=== PATIENT | male | born 2000 | race Two or more races ===

== ENCOUNTER → 2022-12-08 07:53 | Outpatient (BNVA) | payer OTHER, SELFPAY | PROVIDERS: PCP Internal Medicine; Visit Provider Nurse Practitioner Family | DX: R06.83 Snoring (principal); R41.3 Other amnesia; R53.83 Other fatigue; R68.89 Other general symptoms and signs | CPT/HCPCS: 99202 ==

== ENCOUNTER 2023-03-08 15:31 | Outpatient (REF) | payer OTHER, SELFPAY ==
[2023-03-08 18:29] LABS: Amphetamine Screen Urine Not Detected (Not Detect); Barbiturates, Urine Not Detected (Not Detect); Benzodiazepines Screen Urine Not Detected (Not Detect); Cannabinoid Screen Urine Not Detected (Not Detect); Cocaine Screen Urine Not Detected (Not Detect); Fentanyl, urine Not Detected (Not Detect); Opiate Screen Urine Not Detected (Not Detect); Phencyclidine Screen Urine Not Detected (Not Detect)
== END 2023-03-08 15:32 | disposition home or self-care (01) ==
LOC: HO.LAB 15:31
PROVIDERS: PCP Internal Medicine; Visit Provider Internal Medicine
DX: R53.83 Other fatigue (principal)
CPT/HCPCS: 80307

== ENCOUNTER 2023-12-05 15:53 | Outpatient (AMB) | payer OTHER, SELFPAY ==
[2023-12-05 16:00] VITALS: BP 102/68; BMI 20.8
--- NOTE | 2023-12-05 16:00 | MHC.PC.OV ---
Vital Signs 12/05/23 16:00 Height 5 ft 8 in Weight 137 lb BMI 20.8 BP 102/68 Blood Pressure Location Lt brachial Position Sitting Intake Visit Reasons: Physical exam Intake Note: Patient here for a physical exam Change Analyst Required: No Accompanied by: Self / Same As Patient Allergies No Known Allergies Allergy (Verified 12/05/23 16:12) Medication List - Last Reconciled 12/05/23 by Aurora Juan MD ciclopirox 1% 5 mL topical DAILY 30 days omeprazole 40 mg PO DAILY 90 days Tobacco use date assessed: 12/05/23 Dental Screening Dental Screen Date: 12/05/23 Did you have a dental visit in the last 12 months?: Yes Did you have a dental problem in the last 6 months where you did not have access to dental care?: No Was dental information given to patient?: Patient has dentist HPI HPI Comments History of Present Illness Details This is a 23-year-old male that comes accompanied by mother for his physical exam. No chest pain or shortness on breath. No change in bowel or bladder habits. PFSH Surgical History No pertinent past surgical history Family History Mother Arthritis Father Hypercholesterolemia Social History Housing: House Alcohol intake: current Alcohol intake frequency: a few times a month Alcohol type: other Patient Tobacco Use Status: Never used Tobacco e-Cigarette/Vaping Use: Never Used Second Hand Smoke Exposure: Yes service: No Current occupational status: unemployed Cognitive needs: No Hearing needs: No Vision needs: Yes Questionnaire PHQ-9 Over the last 2 weeks, how often have you been bothered by any of the following problems? 1. Little interest or pleasure in doing things: not at all 2. Feeling down, depressed, or hopeless: not at all 3. Trouble falling or staying asleep, or sleeping too much: not at all 4. Feeling tired or having little energy: not at all 5. Poor appetite or overeating: not at all 6. Feeling bad about yourself - or that you are a failure or have let yourself or your family down: not at all 7. Trouble concentrating on things, such as reading the newspaper or watching television: not at all 8. Moving or speaking so slowly that other people could have noticed. Or the opposite - being so fidgety or restless that you have been moving around a lot more than usual: not at all 9. Thoughts that you would be better off or of hurting yourself in some way: not at all Total score: 0 Depression Screening Interpretation: Negative Depression Screening Done: Yes 35574 - PHQ-9 Billing: Yes Source: Developed by Drs. Blake Joshi, Ludmila Biswas, Randall Saldivar and colleagues, with an educational megan from [employer]. Thrive Questionnaire Date Thrive assessed: 12/05/23 I am a: Patient What is your living situation today?: I have a steady place to live Within the past 12 months, did the food you bought not last and you didn't have the money to get more?: Never true Within the past 12 months, did you worry whether your food would run out before you got money to buy more?: Never true Do you have trouble paying for medicines?: No Do you have trouble getting transportation to medical appointments?: No Do you have trouble paying your heating and electricity bill?: No Do you have trouble taking care of your child, family member or friend?: No Do you have trouble with day-to-day activities such as bathing, preparing meals, shopping, managing finances, etc.?: No Are you currently unemployed and looking for a job?: No Are you interested in more education?: No Please select the resources that you would like help with: None Currently or been in a relationship where the following occur: no concerns reported THRIVE Score: 0 AUDIT C Alcohol Use Questionnaire (AUDIT-C) 1. How often do you have a drink containing alcohol?: Monthly or less 2. How many drinks containing alcohol do you have on a typical day when you are drinking?: 1 or 2 3. How often do you have six or more drinks on one occasion?: Never Total Score: 1 Score Reviewed/Action Taken: No CHRISTINA-7 AMB Questionnaire CHRISTINA-7 Date CHRISTINA - 7 assessed: 12/05/23 Feeling nervous, anxious, or on edge: 0 = Not at all Not being able to stop or control worryin = Not at all Worrying too much about different things: 0 = Not at all Trouble relaxin = Not at all Being so restless that it is hard to sit still: 0 = Not at all Becoming easily annoyed or irritable: 0 = Not at all Feeling afraid as if something awful might happen: 0 = Not at all Total CHRISTINA-7 score (0-4 normal; 5-9 mild; 10-14 moderate; 15-21 severe): 0 Source: Developed by Drs. Blake Joshi, Ludmila Biswas, Randall Saldivar and colleagues, with an educational megan from [employer]. CHRISTINA-7 Assessment Billing CHRISTINA-7 Assessment Tool: CHRISTINA-7 Assessment 06956 Review of Systems Const All systems reviewed & are unremarkable except as noted in HPI and below Card Denies chest pain at rest, Denies chest pain with activity, Denies edema, Denies irregular heart rhythm, Denies claudication, Denies dyspnea, Denies dyspnea on exertion, Denies orthopnea, Denies paroxysmal nocturnal dyspnea and Denies slow heart rate Resp Denies cough, Denies dyspnea and Denies dyspnea on exertion Physical exam (Primary Care) Vital Signs: Last Vital Signs BP 102/68 12/05/23 16:00 BMI result Body Mass Index 20.8 Tobacco/Smoking Status: Tobacco use Status Tobacco use date assessed 12/05/23 12/05/23 16:09 Patient Tobacco Use Status Never used Tobacco 12/05/23 16:09 e-Cigarette/Vaping Use Never Used 12/05/23 16:09 PHQ-9: PHQ-9 Score PHQ-9: Total score 0 12/05/23 16:09 Depression Screening Interpretation: Negative Thrive Assessment: Date of Thrive Assessment Date Thrive assessed 12/05/23 12/05/23 16:09 Currently or been in a relationship where the following occur: no concerns reported Const Orientation/consciousness: patient oriented x3 HENMT Head: Yes normal to inspection, Yes normocephalic and Yes atraumatic Ears: external ears normal Eyes General: appearance normal, both eyes and all related structures Eyelids: Yes eyelids normal Conjunctivae: conjunctivae normal Neck Neck: Yes normal visual inspection and Yes supple Resp Effort & Inspection: normal respiratory effort Auscultation: clear to auscultation bilaterally Cardio Jugular venous distension: no JVD Rate: regular rate Rhythm: regular rhythm Heart sounds: S1 normal heart sound present and S2 normal heart sound present GI Inspection: Yes normal to inspection Palpation (GI): Soft to palpation and nontender Auscultation: normal bowel sounds Skin General skin exam: no rashes or lesions noted Neuro General: patient oriented x3 and no focal motor deficits Extrem General: Yes full ROM Psych Appearance: grossly normal Assessment and Plan Assessment & Plan (1) Physical exam: Code(s): Z00.00 - Encounter for general adult medical examination without abnormal findings Plan: Repeat in a year. Orders: Orders Lipid Panel Today E78.5 - Hyperlipidemia, unspecified, Z00.00 - Encounter for general adult medical examination without abnormal findings Comprehensive [place]. Panel Fast Today Z00.00 - Encounter for general adult medical examination without abnormal findings Medications: New selenium sulfide 2.25% massage into affected area; leave on for 10 mins ; rinse off thoroughly 1 appl topical BEDTIME 30 days 180 mL 1RF Refilled omeprazole 40 mg PO DAILY 90 days 90 caps 1RF Coding Level of Care Code Est Pt Prev Care 18-39y(50517) Diagnoses Physical exam Z00.00 Additional Codes CHRISTINA-7 Assessment Billing - CHRISTINA-7 Assessment Tool: CHRISTINA-7 Assessment 97342 ([id number]) Time Spent (min) 30
== END 2023-12-05 16:22 | disposition home or self-care (01) ==
PROVIDERS: PCP Internal Medicine; Visit Provider Internal Medicine
DX: Z00.00 Encounter for general adult medical examination without abnormal findings (principal)
CPT/HCPCS: 99395

== ENCOUNTER 2024-01-30 12:31 | Outpatient (AMB) | payer OTHER, SELFPAY ==
--- NOTE | 2024-01-30 13:34 | MHC.OFFWIV ---
Intake Vital Signs 01/30/24 13:35 Height 5 ft 8 in Weight 142 lb BMI 21.6 BP 110/74 Blood Pressure Location Rt brachial Position Sitting Pulse 75 Pulse Source Pulse Oximeter Temp 98.4 F Temp Source Oral Pulse Oximetry (%) 97 Oxygen Delivery Method Room Air Intake Visit Reasons: Rt wrist pain bump and swelling Intake Note: pt here c/o RT wrist pain bump and swelling. Started 2 weeks ago, lifting something heavy Patient Tobacco Use Status: Never used Tobacco Allergies No Known Allergies Allergy (Verified 01/30/24 13:34) Do you need a note to return to daycare/school/sports/work: No HPI HPI Comments History of Present Illness Details Patient presents to the walk-in today for sick visit Complaining of pain and swelling to the right hand for last 2 weeks Started after he was lifting some weights at the gym He has not taken any medications for the pain PFSH Surgical History No pertinent past surgical history Family History Mother Arthritis Father Hypercholesterolemia Social History Housing: House Alcohol intake: current Alcohol intake frequency: a few times a month Alcohol type: other Patient Tobacco Use Status: Never used Tobacco e-Cigarette/Vaping Use: Never Used Second Hand Smoke Exposure: Yes service: No Current occupational status: unemployed Cognitive needs: No Hearing needs: No Vision needs: Yes Review of Systems Const All systems reviewed & are unremarkable except as noted in HPI and below Physical Exam Vital Signs: Last Vital Signs Temp 98.4 F 01/30/24 13:35 Pulse 75 01/30/24 13:35 BP 110/74 01/30/24 13:35 Pulse Ox 97 01/30/24 13:35 Oxygen Delivery Method Room Air 01/30/24 13:35 BMI result Body Mass Index 21.6 General: awake, alert, oriented. Answers questions appropriately. Fully engaged in examination. Skin: warm, dry, intact HEENT: Normocephalic. Hearing intact. Cardiac: External chest normal in appearance. Respiratory: No cough, audible wheezing or stridor. Abdomen: without gross distension. MS: Scant swelling and tenderness between 1st and 2nd metacarpals. Increased discomfort with flexion and extension of the 2nd digit. Neurological: Oriented to person, place, time and situation. Thought process intact. No gait abnormalities appreciated. Psychiatric: Appropriate mood and affect. Good judgment and insight. Results Reviewed Results Reviewed: Right hand x-ray ordered and independently reviewed: No fracture or dislocation Assessment & Plan Assessment & Plan (1) Sprain of right hand: Code(s): S63.91XA - Sprain of unspecified part of right wrist and hand, initial encounter Plan X-ray ordered independently reviewed: No fracture dislocation. Andres wrap applied. Patient advised on use Rest, ice. Tylenol and Motrin as needed Follow up with PCP or return here for any new worsening symptoms Orders: Orders XR hand RT min 3V Today S69.91XA - Unspecified injury of right wrist, hand and finger(s), initial encounter Coding Level of Care Code Est Pt Level 4 (71207) Diagnoses Sprain of right hand S63.91XA
[2024-01-30 13:35] VITALS: BP 110/74; PULSE 75; TEMP 36.9; O2SAT 97; BMI 21.6
== END 2024-01-30 14:53 | disposition home or self-care (01) ==
PROVIDERS: PCP Internal Medicine; Visit Provider Registered Nurse Emergency
DX: S63.91XA Sprain of unspecified part of right wrist and hand, initial encounter (principal)
CPT/HCPCS: 99214

== ENCOUNTER 2024-01-30 14:12 | Outpatient (REF) | payer OTHER, SELFPAY ==
--- NOTE | ~2024-01-30 | XR_ITS ---
EXAMINATION: XR HAND, RIGHT CLINICAL INFORMATION: Injury. COMPARISON: None available. TECHNIQUE: PA, lateral, and oblique views of the right hand. FINDINGS: The bones and soft tissues are normal. No fracture. Alignment is anatomic. Joint spaces are maintained. No erosions or soft tissue calcifications. XR/XR hand RT min 3V IMPRESSION: Normal right hand.
== END 2024-01-30 14:13 | disposition home or self-care (01) ==
LOC: HO.HMGCX 14:12
PROVIDERS: PCP Internal Medicine; Visit Provider Registered Nurse Emergency
DX: S69.91XA Unspecified injury of right wrist, hand and finger(s), initial encounter (principal)
CPT/HCPCS: 73130

== ENCOUNTER 2024-01-31 08:57 | Outpatient (REF) | payer OTHER, SELFPAY ==
[2024-01-31 09:56] LABS: Alanine Aminotransferase 16 U/L (0-40); Albumin Level 4.4 g/dL (3.5-5.0); Alkaline Phosphatase 73 U/L (39-117); Anion Gap 11 (12-20); Aspartate Amino Transferase 14 U/L (5-37); Bilirubin Total 0.3 mg/dL (0.0-1.0); Blood Urea Nitrogen 13 mg/dL (9-16); Calcium 9.2 mg/dL (8.4-10.2); Carbon Dioxide 29 mmol/L (22-29); Chloride 106 mmol/L (96-108); Cholesterol 158 mg/dL (<200); Estimated Glomerular Filt Rate > 60; Glucose Fasting 98 mg/dL (60-99); HDL Cholesterol 39 mg/dL (>40); LDL Cholesterol Calculated 101 mg/dL (<100); Potassium 3.9 mmol/L (3.3-5.1); Sodium 142 mmol/L (135-145); Total Protein 7.1 g/dL (6.5-8.0); Triglycerides 91 mg/dL (<150)
== END 2024-01-31 08:58 | disposition home or self-care (01) ==
LOC: HO.LAB 08:57
PROVIDERS: PCP Internal Medicine; Visit Provider Internal Medicine
DX: Z00.00 Encounter for general adult medical examination without abnormal findings (principal); E78.5 Hyperlipidemia, unspecified
CPT/HCPCS: 36415; 80053; 80061

== ENCOUNTER 2024-02-14 08:53 | Outpatient (REF) | payer OTHER, SELFPAY ==
[2024-02-14 10:44] LABS: Amphetamine Screen Urine Not Detected (Not Detect); Barbiturates, Urine Not Detected (Not Detect); Benzodiazepines Screen Urine Not Detected (Not Detect); Buprenorphine Scr Not Detected (Not Detect); Cannabinoid Screen Urine Not Detected (Not Detect); Cocaine Screen Urine Not Detected (Not Detect); Fentanyl, urine Not Detected (Not Detect); Methadone Screen, Urine Not Detected (Not Detect); Opiate Screen Urine Not Detected (Not Detect); Oxycodone Screen Urine Not Detected (Not Detect); Phencyclidine Screen Urine Not Detected (Not Detect)
[2024-02-17 02:13] LABS: TS Negative Control Passed; TS Panel A 2; TS Panel B 2; TS Positive Control Passed; TSpotTB Negative (Negative)
== END 2024-02-14 08:54 | disposition home or self-care (01) ==
LOC: HO.LAB 08:53
PROVIDERS: PCP Internal Medicine; Visit Provider Internal Medicine
DX: Z02.1 Encounter for pre-employment examination (principal); Z11.1 Encounter for screening for respiratory tuberculosis
CPT/HCPCS: 80307; 86481

== ENCOUNTER 2024-10-06 22:56 | Emergency (ER) | payer OTHER, SELFPAY ==
[2024-10-06 22:57] VITALS: BP 117/70; PULSE 84; RESP 16; TEMP 37; O2SAT 97; BMI 20.7
--- NOTE | 2024-10-06 23:16 | ED.EAR ---
HPI - Ear Problem General Chief complaint: Ear Problems Stated complaint: can't hear from right ear Time Seen by Provider: 10/06/24 23:06 Source: patient Mode of arrival: ambulatory Limitations: no limitations History of Present Illness ED Provider: Dr. Florecita Brennan HPI Narrative: Patient comes to the emergency room complaining of 1 week of difficulty hearing especially out of the right ear. Patient states that about a week ago, he was in a bar in the head really loud music. Since then, he has had difficulty hearing. Patient states that the hearing difficulty fluctuates between not being able to hear to muffled to getting better especially at nighttime, however his hearing is not back to normal at any time. Patient denies any ear pain or discharge. Related Data Previous Rx's ?Medication ?Instructions ?Recorded ciclopirox 1 % shampoo 5 ml topical DAILY 30 days #120 mL 06/22/23 selenium sulfide 2.25 % shampoo 1 appl topical BEDTIME 30 days 12/05/23 #180 mL omeprazole 40 mg capsule,delayed 40 mg PO DAILY 90 days #90 caps 06/20/24 release Allergies Allergy/AdvReac Type Severity Reaction Status Date / Time No Known Allergies Allergy Verified 10/06/24 22:59 Review of Systems Review of Systems: Constitutional : No Weight loss, No Fever, No Chills, No Night Sweats, No Fatigue, No Malaise ENT/Mouth : Complaining of hearing difficulty both ears but much worse on the right. Patient states that the left ear is almost normal, No Ear Pain, No Nasal Congestion, No Sinus Pain, No Hoarseness, No sore throat, No Rhinorrhea, No Swallowing Difficulty Eyes: No Eye Pain, No Swelling, No Redness, No Foreign Body, No Discharge, No Vision Changes Cardiovascular : No Chest Pain, No SOB, No Dyspnea on Exertion, No Orthopnea, No Edema, No Palpitations Respiratory : No Cough, No Sputum, No Wheezing, No Smoke Exposure, No Dyspnea Gastrointestinal : No Nausea, No Vomiting, No Diarrhea, No Constipation, No abdominal Pain, No Hematochezia, No Melena Genitourinary : no irregular bleeding, No Dysuria, No Urinary Frequency, No Hematuria, No Urinary Incontinence, No Urgency, No Flank Pain, No Urinary Flow Changes, No Hesitancy Musculoskeletal : No joint pain, No Myalgias, No Joint Swelling Skin : No Skin Lesions, No rash Neuro : No Weakness, No Numbness, No Paresthesias, No Loss of Consciousness, No Dizziness, No Headache Psych : No Anxiety/Panic, No Depression, No SI/HI/AH/VH, No Social Issues, Heme/Lymph: No Bruising, No Bleeding,No Lymphadenopathy Endocrine : No Polyuria, No Polydipsia, No Temperature Intolerance [facility] Past Medical History Surgical History No pertinent past surgical history Family History Family History Mother Arthritis Father Hypercholesterolemia Social History Social History Housing: House Alcohol intake: current Alcohol intake frequency: a few times a month Alcohol type: other Patient Tobacco Use Status: Never used Tobacco e-Cigarette/Vaping Use: Never Used Second Hand Smoke Exposure: Yes service: No Current occupational status: unemployed Cognitive needs: No Hearing needs: No Vision needs: Yes Physical Exam Vital Signs: Vital Signs: Last Vital Signs Temp 98.6 F 10/06/24 22:57 Pulse 84 10/06/24 22:57 Resp 16 10/06/24 22:57 BP 117/70 10/06/24 22:57 Pulse Ox 97 10/06/24 22:57 O2 Del Method Room Air 10/06/24 22:57 BMI result Body Mass Index 20.7 Const: Other: Appearance: Alert. Oriented X3. No acute distress. Eyes: Pupils equal, round and reactive to light. ENT: Pharynx normal. Bilateral tympanic membranes within normal limits, no perforation, clean ear canals with no cerumen, no fluid levels behind tympanic membranes, no erythema, no signs of otitis Neck: Normal inspection. Neck supple. No lymph nodes noted. No crepitus CVS: Normal heart rate and rhythm. Pulses normal. Normal S1 and S2 Respiratory: No respiratory distress. Breath sounds normal. No Wheezing. No rales Abdomen: Soft and nontender. No rigidity. No distention. Skin: Skin warm and dry. Normal skin color. Normal skin turgor. Extremities: No lower extremity edema. No Lacerations. No Rash Neuro: Oriented X 3. No motor deficit. No sensory deficit. Moving all extremities. No slurred speech. CN 2 through 12 grossly intact Psych: calm, cooperative, normal affect Medical Decision Making Medical Decision Making MDM Narrative: I discussed with the patient that his symptoms are likely secondary to a temporary threshold shift which is caused by a loud noise and damage to the hair cells of the inner ear. The cells need time to regenerate. At this time, there is no medication that would help improve his symptoms, only with time. However, I discussed with the patient that he needs to follow-up with his PCP and probably be referred to audiology. Discharge Plan Discharge Clinical Impression: Temporary auditory threshold shift Patient Disposition: Home, Self-Care Instructions: Tinnitus (ED) Additional Instructions: Please follow-up with your primary care physician tomorrow. If you have any worsening or new symptoms, please return to the emergency room or call 911 Prescriptions: No Action ciclopirox 1 % shampoo 5 ml topical DAILY 30 Days Qty: 120 6RF omeprazole 40 mg capsule,delayed release(DR/EC) 40 mg PO DAILY 90 Days Qty: 90 1RF selenium sulfide 2.25 % shampoo 1 appl topical BEDTIME 30 Days Qty: 180 1RF Rx Instructions: massage into affected area; leave on for 10 mins ; rinse off thoroughly Print Language: Romanian
--- OUTSIDE RECORDS SUMMARY | 2024-10-06 23:19 | XMS_ITS | Encounter Summary ---
Author Organization [facility] Address [address] [place] [id number] Phone Care Team Providers Care Glycerin Operator Name Role Phone Jori Mccormick MD Primary Care Provider Unavailabl e Encounter Details Date Type Department Care Team (Late st Contact Info) Description 08/23/2012 [place] [facility] [place] [address] [place], [place] [id number] Family Medicine, Physician [address] [place] [address] Social History Tobacco Use Types Packs/Day Years Used Date Smoking Tobacco: Never Assessed Sex and Gender Information Value Date Recorded Sex Assigned at Not on file Legal Sex Male 4:44 PM EDT Gender Identity Not on file Sexual Orientation Not on file documented as of this encounter Plan of Treatment Not on file documented as of this encounter Visit Diagnoses Not on filedocumented in this encounter Care Teams Glycerin Operator Relationship Specialty Start Date End Date Jori Mccormick MD PCP - General 02/11/17 documented as of this encounter
--- OUTSIDE RECORDS SUMMARY | 2024-10-06 23:19 | XMS_ITS | Encounter Summary ---
Author Organization [facility] Address [address] [place] [address] Phone Care Team Providers Care Indian Nanny Name Role Phone Jori Mccormick MD Primary Care Provider Unavailabl e Encounter Details Date Type Department Care Team (Late st Contact Info) Description 12/25/2013 Documentation [facility] [place] Family Medicine [address] [place], [place] [phone] Family Medicine, Physician [address] [place] [address] Social History Tobacco Use Types Packs/Day Years [...] on filedocumented in this encounter Care Teams Indian Nanny Relationship Specialty Start Date End Date Jori Mccormick MD PCP - General 02/11/17 documented as of this encounter
--- OUTSIDE RECORDS SUMMARY | 2024-10-06 23:19 | XMS_ITS | Encounter Summary ---
Author Organization [facility] Address [address] [place] [address] Phone Care Team Providers Care Yarn Examiner Name Role Phone Jori Mccormick MD Primary Care Provider Unavailabl e Encounter Details Date Type Department Care Team (Late st Contact Info) Description 06/19/2013 [place] [facility] [place] [address] [place] [address] Family Medicine, Physician [address] [place] [address] Social History Tobacco Use Types Packs/Day Years [...] on filedocumented in this encounter Care Teams Yarn Examiner Relationship Specialty Start Date End Date Jori Mccormick MD PCP - General 02/11/17 documented as of this encounter
--- OUTSIDE RECORDS SUMMARY | 2024-10-06 23:19 | XMS_ITS | Encounter Summary ---
Author Organization [facility] Address [address] [place] [address] Phone Care Team Providers Care Security Operations Specialist Name Role Phone Jori Mccormick MD Primary Care Provider Unavailabl e Encounter Details Date Type Department Care Team (Late st Contact Info) Description 02/17/2017 Conversion Encounter [facility] - [address] [address] Social History Tobacco Use Types Packs/Day Years [...] on filedocumented in this encounter Care Teams Security Operations Specialist Relationship Specialty Start Date End Date Jori Mccormick MD PCP - General 02/11/17 documented as of this encounter
--- OUTSIDE RECORDS SUMMARY | 2024-10-06 23:19 | XMS_ITS | Clinical Summary ---
Author Organization [facility] Address [address] [place] [address] Phone Care Team Providers Care Laborer Wharf Name Role Phone Jori Mccormick MD Primary Care Provider Unavailabl e Immunizations Immunization Administration Dates Next Due DTaP 5 09/30/2004, 1,01/28/2000, 000,1999 H1N1 07/17/2009,06/12/2009 HPV, Quadrivalent 08/30/2013,06/08/2013 Hep B, ped/adol 03/02/2000,1999,1999 Hib (PRP-T) 10/12/2000, 0,1999, 000 IPV 09/30/2004, 1,1999, 000 Influenza, injectable, trivalent 07/17/2009 Influenza, intranasal, quadrivalent 05/11/2013 Influenza, intranasal, trivalent 03/16/2012 MMR 07/12/2003,10/12/2000 Meningococcal Conj (Menactra) MCV4P 03/12/2011 Pneumococcal Conjugate 03/20/2004,07/26/2000, Tdap 03/12/2011 Varicella 12/21/2007,07/26/2000 Family History Relation Name Status Comments Brother Alive Brother: Alive and well Mother Alive Mother: arthrit is / migraines / ulcer Social History Tobacco Use Types Packs/Day Years Used Date Smoking Tobacco: Never Assessed Sex and Gender Information Value Date Recorded Sex Assigned at Not on file Legal Sex Male 4:44 PM EDT Gender Identity Not on file Sexual Orientation Not on file Last Filed Vital Signs Vital Sign Reading Time Taken Comments Blood Pressure 109/64 09/06/2013 12:00 AM EST Pulse 71 06/08/2013 12:00 AM EST Temperature 36.7 ??C (98.1 ??F) 06/08/2013 12:[address] Respiratory Rate - - Oxygen Saturation - - Inhaled Oxygen Concentration - - Weight 54.4 kg (120 lb) 09/06/2013 12:00 AM EST Height 165.1 cm (5' 5 ) 09/06/2013 12:00 AM EST Body Mass Index 19.97 09/06/2013 12:00 AM EST Plan of Treatment Health Maintenance Due Date Last Done Comments HPV Vaccines (3 - Male 2-dose series) 12/07/2013 08/30/2013, 06/08/2013 DTaP,Tdap,and Td Vaccines (7 - Td or Tdap) 03/12/2021 03/12/2011, 09/30/2004, 12/12/2000, Additional history exists Influenza Vaccines (#1) 2024 05/11/20 13, 03/16/2012, 07/17/2009 COVID-19 Vaccine ( season) 2024 Hepatitis B Vaccines Completed 03/02/2000, 1999, 1999 HIB Vaccines Completed 10/12/2000, 01/02, 1999, Additional history exists MMR Vaccines Completed 07/12/2003, 10/12/2000 Pneumococcal Vaccine Completed 03/20/2004, 07/26/2000, 04/28/2000 IPV Vaccines Completed 09/30/2004, 12/02, 1999, Additional history exists Varicella Vaccines Completed 12/21/2007, 07/26/2000 Meningococcal Vaccine Aged Out 03/12/2011 No saritha gary eligible based on patient's age to complete this topic Hepatitis A Vaccines Aged Out No long er eligible based on patient's age to complete this topic Men B Vaccine Aged Out No longer elig ible based on patient's age to complete this topic Care Teams Laborer Wharf Relationship Specialty Start Date End Date Jori Mccormick MD PCP - General 02/11/17
--- OUTSIDE RECORDS SUMMARY | 2024-10-06 23:19 | XMS_ITS | Encounter Summary ---
Author Organization [facility] Address [address] [place] [phone] Phone Care Team Providers Care Dietitian Research Name Role Phone Jori Mccormick MD Primary Care Provider Unavailabl e Encounter Details Date Type Department Care Team (Late st Contact Info) Description 05/24/2013 Documentation [facility] [place] [address] [place] [address] Family Medicine, Physician [address] [place] [address] Social History Tobacco Use Types Packs/Day Years [...] on filedocumented in this encounter Care Teams Dietitian Research Relationship Specialty Start Date End Date Jori Mccormick MD PCP - General 02/11/17 documented as of this encounter
--- OUTSIDE RECORDS SUMMARY | 2024-10-06 23:19 | XMS_ITS | Clinical Summary ---
Author Organization [facility] it Address [address] [place] [address] Care Team Providers Care Director Service Name Role Phone Darwin Rodriguez MD Primary Care Provider [phone] Allergies No known active allergies Medications omeprazole (PriLOSEC) [address] capsule Take 1 capsule (40 mg total) by mouth 1 (one) time each day. 01/11/2022 Active ciclopirox 1 % shampoo Use every second or third day on scalp and face as directed/nee ded 01/11/2022 Active Active Problems Problem Noted Date Diagnosed Date Episodic cluster headache, not intractable 12/03 Overview (07/03/2024): New onset assciated with emesis MRI NL 08/19/15 Abdominal pain 07/01/2015 Overview (07/03/2024): Saw GI [id number] Vargas Dyspepsia vs functional abd pain, bentyl and omeprazol Rx. Celiac screen 07/2013 Negative, lactose intolerant. Acne 07/01/2015 Overview (07/03/2024): 05/17 on doxycycilne rx by coil assembler [place], Mom feels it did not make any difference in acne, she should like to see coil assembler in this area. Was on cleocin in the past which helped, cleocin for now and referral to dermatology. Lactose intolerance 07/01/2015 Immunizations Name Administration Dates Next Due DTaP (Infanrix) 6wks to less than 7yo ,01/28/2000,1999,09/16 [id number] (Pentacel) 2mo to less than 5yo 01/28/2000,1999,1999,09/16 H1N1 Inj Preservative Free 07/17/2009,06/12/2009 HPV, Quadrivalent 05/13/2014,08/30/2013,06/08/20 13 Hepatitis B Pediatric (Enger ix B; Recombivax HB) to less than 20 yo 03/02/2000,1999,1999 IPV Inactivated polio (Ipol) 6wks and older 09/30/2004,1999,1999,09/16 Influenza trivalent, 0.5mL, preservative free (Fluarix; FluLaval; Fluzone) ages 6mo and older (Afluria) 3 years and older 05/13/2014 Influenza trivalent, with pr eservative (Fluzone; Afluria) 6mo and older 03/28/2020,07/01/2015,07/17/2009 Influenza, live, intranasal, trivalent (FluMist) 2yo to less than 50yo 05/11/2013,03/16/2012 MMR, measles mumps and rubel la Live (Priorix; M-M-R II) 12mo and older 07/12/2003,10/12/2000 Meningococcal MCV4P 07/01/2015,03/12/2011 PPD Test 11/16/2017 Pneumococcal Conjugate Vacci ne, 7 Valent 07/26/2000,04/28/2000,03/02/2000 Tdap Tetanus diptheria acell ular pertussis (Boostrix; Adacel) 7yo and older 02/26/2021,03/12/2011 Varicella live (Varivax) 12m o and older 12/21/2007,07/26/2000 Surgical History Surgery Date Site/Laterality Comments OTHER SURGICAL HISTORY Bilateral PROCEDURE: HISTORICAL EAR SURGERY; COMMENT: Tubes Medical History Medical History Date Comments Lactose intolerance DX:Lactose i ntolerance; COMMENT: abd pain resolved with change to lactaid Gastro-esophageal reflux dis ease without esophagitis DX:Gastro-esophageal reflux disease without esophagitis Family History Medical History Relation Name Comments Hyperlipidemia Father Relation Name Status Comments Brother Alive Father Alive Maternal Grandfather Alive Maternal Grandmother Mother Alive Paternal Grandfather Alive Paternal Grandmother Alive Social History Tobacco Use Types Packs/Day Years Used Date Smoking Tobacco: Never Smokeless Tobacco: Never Alcohol Use Standard Drinks/Week Comments Not Currently 0 (1 standard drink = 0.6 oz pur e alcohol) Sex and Gender Information Value Date Recorded Sex Assigned at Not on file Legal Sex Male 2:49 AM EST Gender Identity Not on file Sexual Orientation Not on file Obstetrics History Plan of Treatment Health Maintenance Due Date Last Done Comments Depression Screening 06/06/2022 Social Influencers of Health Screening 06/06/2022 COVID-19 Vaccine (2023- season) 2024 Influenza Vaccine (#1) 2024 , 07/01/2015, 05/13/2014, Additional history exists Cholesterol Screening (Lipid Panel) 09/01/2026 09/01/2021 DTaP,Tdap,and Td Vaccines (7 - Td or Tdap) 02/26/2031 02/26/2021, 03/12/2011, 12/12/2000, Additional history exists HIB Vaccines Aged Out 01/28/2000, 10/1999, 1999, Additional history exists No longer eligible based on patient's age to complete this topic Hepatitis B Vaccines Completed 03/02/2000, 1999, 1999 Pneumococcal Vaccine: Pediatrics (0 to 5 Years) and At-Risk Patients (6 to 64 Years) Completed 07/26/2000, 04/28/2000, 03/02/2000 MMR Vaccines Completed 07/12/2003, 10/12/2000 IPV Vaccines Completed 09/30/2004, 01/02, 1999, Additional history exists Varicella Vaccines Completed 12/21/2007, 07/26/2000 HPV Vaccines Completed 05/13/2014, 08/05, 06/08/2013 Meningococcal ACWY Vaccine Completed 07/01/2015, HIV Screening Completed 09/01/2021 Hepatitis C Screening Completed 09/01/2021 Hepatitis A Vaccines Aged Out No long er eligible based on patient's age to complete this topic Meningococcal B Vacine Aged Out No lo nger eligible based on patient's age to complete this topic RSV Immunization Patients Under 20 months Aged Out No longer eligible based on patient's age to complete this topic Procedures Procedure Name Priority Date/Time Associated Diagnosis Comments HEPATITIS C SCREENING Routine 09/01/2021 HIV SCREENING Routine 09/01/2021 LIPID PANEL Routine 09/01/2021 from Last 3 Months or Most Recently Relevant to Health Maintenance Results * HIV Screening (09/01/2021) HIV Screening abstracted [facility] Provider HEALTH MAINTENANCE Final Result * Hepatitis C Screening (09/01/2021) Hepatitis C Screening abstracted [facility] Provider HEALTH MAINTENANCE Final Result * Lipid panel (09/01/2021) LDL/HDL Ratio 3 0 - 4 Triglycerides 78 0 - 150 mg/dL Cholesterol 134 0 - 200 mg/dL HDL 47 >=40 mg/dL LDL Cholesterol 72 0 - 100 mg/dL Blood Venous blood specimen / Unknown [facility] Provider LAB BLOOD ORDERABLES Shanna l Result from Last 3 Months or Most Recently Relevant to Health Maintenance Care Teams Director Service Relationship Specialty Start Date End Date Darwin Rodriguez MD PCP - General Internal Medicine 08/25/20
[2024-10-06 23:31] VITALS: BP 117/70; PULSE 84; RESP 16; TEMP 37; O2SAT 97
== END 2024-10-06 23:31 | disposition home or self-care (01) ==
PROVIDERS: Emergency Provider Emergency Medicine; PCP Internal Medicine
DX: H93.242 Temporary auditory threshold shift, left ear (principal)
CPT/HCPCS: 99282; 99284

== ENCOUNTER → 2024-10-12 18:00 | Outpatient (BNV) | payer OTHER, SELFPAY | PROVIDERS: PCP Internal Medicine; Visit Provider Radiology Diagnostic Radiology | DX: H74.8X3 Other specified disorders of middle ear and mastoid, bilateral (principal); J35.3 Hypertrophy of tonsils with hypertrophy of adenoids | CPT/HCPCS: 70551 ==

== ENCOUNTER 2024-10-12 18:01 | Outpatient (REF) | payer OTHER, SELFPAY ==
--- NOTE | ~2024-10-12 | MR_ITS ---
EXAMINATION: MR BRAIN WITHOUT IV CONTRAST HISTORY: R68.89 - Other general symptoms and signs; FORGETFULNESS TECHNIQUE: Sagittal T1, coronal FLAIR, and axial T1, FLAIR, T2, gradient echo, and diffusion weighted MR images of the brain were obtained. COMPARISON: None FINDINGS: The brain parenchyma is unremarkable, demonstrating normal tesfaye/white differentiation. No foci of abnormal signal intensity are identified. The ventricular system is normal in size and configuration. There is no mass effect or midline shift. No intra or extra-axial fluid collections are identified. There are no foci of restricted diffusion. Normal vascular flow voids are noted in the basilar and carotid arteries. There is mucosal thickening in the bilateral maxillary sinuses. There is fluid in the bilateral mastoid air cells. There is moderate to marked hypertrophy of the adenoids and palatine tonsils. MR/MR head/brain wo con IMPRESSION: 1. Unremarkable MRI of the brain without contrast. 2. Fluid in the bilateral mastoid air cells. Moderate to marked hypertrophy of the adenoids and palatine tonsils. Electronically signed by: Blake Wood MD 10/15/2024 07:24 AM EDT
== END 2024-10-12 18:02 | disposition home or self-care (01) ==
LOC: HO.MRI 18:01
PROVIDERS: PCP Internal Medicine; Visit Provider Internal Medicine
DX: R68.89 Other general symptoms and signs (principal)
CPT/HCPCS: 70551

== ENCOUNTER 2025-01-10 13:55 | Outpatient (AMB) | payer OTHER, SELFPAY ==
--- OUTSIDE RECORDS SUMMARY | 2025-01-10 14:00 | XMS_ITS | Clinical Summary ---
Author Organization [facility] Address [address] [place] [id number] Phone Care Team Providers Care Game Programer Name Role Phone Jori Mccormick MD Primary [...] 70 06/08/2013 12:00 AM EST Temperature 36.7 C (98.1 F) 06/08/2013 12:00 AM EST Respiratory Rate - - Oxygen Saturation - [...] 03/12/2021 03/12/2011, 09/30/2004, 12/12/2000, Additional history exists COVID-19 Vaccine () 03/04/2024 Influenza Vaccines (#1) 2025 05/11/20 13, 03/16/2012, 07/17/2009 Hepatitis B Vaccines Completed 03/02/2000, 1999, 1999 [...] age to complete this topic Care Teams Game Programer Relationship Specialty Start Date End Date Jori Mccormick MD PCP - General 02/11/17
--- OUTSIDE RECORDS SUMMARY | 2025-01-10 14:00 | XMS_ITS | Clinical Summary ---
Author Organization [facility] it Address [address] [place] [address] Care Team Providers Care Hedis Analyst Name Role Phone Darwin Rodriguez MD Primary Care Provider [phone] Allergies No known active allergies Medications omeprazole [...] Abdominal pain 07/01/2015 Overview (07/03/2024): Saw GI [id number] Vargas Dyspepsia vs functional abd pain, bentyl and omeprazol Rx. Celiac screen 07/2013 Negative, lactose intolerant. Acne 07/01/2015 Overview (07/03/2024): 05/17 on doxycycilne rx [place] copy [place], Mom feels it did not make any difference in acne, she should like to see copy clerk in this area. Was on cleocin in the past which helped, cleocin for now and referral to dermatology. Lactose intolerance 07/01/2015 Immunizations Name Administration Dates Next Due DTaP (Infanrix) 6wks to less than 7yo ,01/28/2000,1999,09/16 [id number] (Pentacel) 2mo to less than 5yo 01/28/2000,1999,1999,09/16 [...] Influencers of Health Screening 06/06/2022 COVID-19 Vaccine ( season) 2024 Influenza Vaccine (#1) 2025 , 07/01/2015, 05/13/2014, Additional history exists Cholesterol [...] 5 Years) and At-Risk Patients (6 to 49 Years) Completed 07/26/2000, 04/28/2000, 03/02/2000 MMR Vaccines Completed 07/12/2003, 10/12/2000 IPV Vaccines Completed 09/30/2004, 01/02, 1999, Additional history exists Varicella Vaccines Completed 12/21/2007, 07/26/2000 HPV Vaccines Completed 05/13/2014, 08/05, 06/08/2013 Meningococcal ACWY Vaccine Completed 07/01/2015, HIV Screening Completed 09/01/2021 Hepatitis C Screening Completed 09/01/2021 Hepatitis A Vaccines Aged Out No long er eligible based on patient's age to complete this topic Meningococcal B Vaccine Aged Out No l onger eligible based on patient's age to complete [...] * HIV Screening (09/01/2021) HIV Screening abstracted [facility] Provider HEALTH MAINTENANCE Final Result * Hepatitis C Screening (09/01/2021) Hepatitis C Screening abstracted [facility] Provider HEALTH MAINTENANCE Final Result * Lipid panel (09/01/2021) LDL/HDL Ratio 3 0 - 4 Triglycerides 78 0 - 150 mg/dL Cholesterol 134 0 - 200 mg/dL HDL 47 >=40 mg/dL LDL Cholesterol 72 0 - 100 mg/dL Blood Venous blood specimen / Unknown [facility] Provider LAB BLOOD ORDERABLES Shanna l Result from Last 3 Months or Most Recently Relevant to Health Maintenance Care Teams Hedis Analyst Relationship Specialty Start Date End Date Darwin Rodriguez MD PCP - General Internal Medicine 08/25/20
[2025-01-10 14:06] VITALS: BP 120/60; PULSE 76; O2SAT 99; BMI 21.2
--- NOTE | 2025-01-10 14:06 | A.OFFVIS_ITS ---
Vital Signs 01/10/25 14:06 Height 5 ft 8 in Weight 139 lb 2 oz BMI 21.2 BP 120/60 Blood Pressure Location Rt brachial Position Sitting Pulse 76 Pulse Source Pulse Oximeter Pulse Oximetry (%) 99 Oxygen Delivery Method Room Air Intake Visit Reasons: Follow Up Intake Note: Patient presents for f/u MRI 10/12/24. no showed to sleep study. Patient states having trouble concentrating and wondering if he has ADHD. Accompanied by: Mother Allergies No Known Allergies Allergy (Verified 01/10/25 14:13) Medication List - Last Reconciled 01/10/25 by Laura Carrillo MD ciclopirox 1% 5 mL topical DAILY 30 days omeprazole 40 mg PO DAILY 90 days selenium sulfide 2.25% 1 appl topical BEDTIME 30 days HPI Comments Details: 24 y/o male patient presents with his mother for follow up visit for of memory loss. He is here after 3 years . His MRI brain wa sunremarkable. He did not have sleep study, neuropsych eval or labs as requested. 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 He has trouble concentrating , focusing, remembering routes while driving etc. 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 He has board exams in February and wants neuropsych eval before that so he could get accommodations. History from initial visit-However, he forgets the information soon after he learned it, and needs to review a lot to retain what he learn from school. Pt's mother states that his memory was not great since he was a child. He forgets where he puts his phone, confused the date sometimes, and can't remember the way to go to the bank he usually goes to. Sometimes he can't remember what he had for breakfast. Pt had hx of frequent ear infection and had tube in twice at his age 1 and 4. He also had speech therapy until 5 years old. Pt states that he feels his memory has been worsened over the last 4 years, since he start the master program. He is in stress, and anxious. He drinks hard liquor 1-2 a week socially with his friends. Denies depression. Denies recreational drug use. He states that he sleeps ok, 6-7 hours at night. He snores and having daytime tiredness. He reports intermittent gasping arousals. He has occasional headache, and uses ibuprofen. Family hx of Alzheimer. No brain images done. [facility] Medical History (Updated 01/10/25 @ 14:35 by Laura Carrillo MD) Cognitive disorder Surgical History No pertinent past surgical history Family History Mother Arthritis Father Hypercholesterolemia Social History Housing: House Alcohol intake: current Alcohol intake frequency: a few times a month Alcohol type: other Patient Tobacco Use Status: Never used Tobacco e-Cigarette/Vaping Use: Never Used Second Hand Smoke Exposure: Yes service: No Current occupational status: unemployed Cognitive needs: No Hearing needs: No Vision needs: Yes Review of Systems ENT Reports Normal hearing present Neuro Reports Normal hearing present Physical Exam Vital Signs: Last Vital Signs Pulse 76 01/10/25 14:06 BP 120/60 01/10/25 14:06 Pulse Ox 99 01/10/25 14:06 Oxygen Delivery Method Room Air 01/10/25 14:06 BMI result Body Mass Index 21.2 Const General: cooperative and healthy appearing Nutritional Appearance: average body habitus Orientation/consciousness: patient oriented x3 Resp Effort & Inspection: normal respiratory effort and able to speak in complete sentences Neuro General: patient oriented x3, gait normal and moves all extremities Cranial nerves: Yes Bilaterally intact EOM present, Yes Normal facial strength present, Yes Midline tongue present, Yes Normal hearing present, Yes Ability to bilaterally rotate head present and Yes Ability to bilaterally elevate shoulders present Cognition (Neuro): normal cognition Motor exam (neuro): 5/5 motor strength present throughout, Pronator motor function not present and no tremor noted Coordination: [id number] test normal Psych Appearance: grossly normal Mental Status: mental status grossly normal Affect: normal affect Attitude: cooperative Assessment & Plan Assessment & Plan (1) Forgetfulness: Comment: ? ADD Code(s): R68.89 - Other general symptoms and signs Category: Medical (2) Fatigue: Code(s): R53.83 - Other fatigue Category: Medical (3) Snoring: Code(s): R06.83 - Snoring Category: Medical (4) Memory loss: Code(s): R41.3 - Other amnesia Category: Medical Plan . Brain MRI. Advised patient to undergo neuropsychology evaluation Home sleep study to r/o sleep apnea. Trial patient on vyvanse 10 mg qam for ADD . Orders: Orders RT home sleep study Today R06.83 - Snoring, R53.83 - Other fatigue Referrals Neuropsychiatry Referral F90.9 - Attention-deficit hyperactivity disorder, unspecified type Speech and Hearing Referral F09 - Unspecified mental disorder due to known physiological condition Medications: New lisdexamfetamine (Vyvanse) Partial Fill upon patient request. 10 mg PO QAM 30 caps 0RF Coding Level of Care Code Est Pt Level 4 (81880) Complex EM visit Add On G2211 Diagnoses Forgetfulness R68.89 Fatigue R53.83 Snoring R06.83 Memory loss R41.3
== END 2025-01-10 14:35 | disposition home or self-care (01) ==
LOC: HO.HSMS 13:56
PROVIDERS: PCP Internal Medicine; Visit Provider Psychiatry & Neurology Neurology
DX: R68.89 Other general symptoms and signs (principal); R53.83 Other fatigue; R06.83 Snoring; R41.3 Other amnesia
CPT/HCPCS: 99214; G2211

== ENCOUNTER → 2025-01-10 13:55 | Outpatient (BNVA) | payer OTHER, SELFPAY | PROVIDERS: PCP Internal Medicine; Visit Provider Psychiatry & Neurology Neurology | DX: R68.89 Other general symptoms and signs (principal); R53.83 Other fatigue; R06.83 Snoring; R41.3 Other amnesia | CPT/HCPCS: 99212 ==

== ENCOUNTER 2025-05-07 15:21 | Outpatient (AMB) | payer OTHER, SELFPAY ==
--- NOTE | 2025-05-07 15:32 | A.OFFPC_ITS ---
Vital Signs 05/07/25 15:33 Height 5 ft 8 in Weight 144 lb 2 oz BMI 21.9 BP 100/60 Blood Pressure Location Lt brachial Position Sitting Pulse 80 Pulse Source Pulse Oximeter Temp 97.3 F Temp Source Temporal Artery Scan Pulse Oximetry (%) 97 Oxygen Delivery Method Room Air Intake Visit Reasons: Annual physical Intake Note: Patient is here today for a physical. Shredded Filler Cutter Operator Required: No County Library Director: Not Required per policy Accompanied by: Self / Same As Patient Allergies No Known Allergies Allergy (Verified 05/07/25 15:46) Medication List - Last Reconciled 05/07/25 by Aurora Juan MD ciclopirox 1% 5 mL topical DAILY 30 days omeprazole 40 mg PO DAILY 90 days selenium sulfide 2.25% 1 appl topical BEDTIME 30 days Tobacco use date assessed: 05/07/25 Dental Screening Dental Screen Date: 05/07/25 Did you have a dental visit in the last 12 months?: Yes Did you have a dental problem in the last 6 months where you did not have access to dental care?: No Was dental information given to patient?: Patient has dentist HPI HPI Comments History of Present Illness Details The patient is a 24-year-old male presenting for a physical exam. Declines flu vaccine. The patient has a history of migraines and is followed by a neurologist. He describes the headaches as minor and occurring intermittently, sometimes triggered by car rides lasting two hours or more. He treats them with rglh-gsk-jxlqihf medications. A prior MRI of the brain was normal. He has no known drug allergies and no history of surgeries. His mother has arthritis and high cholesterol. He does not smoke, drinks alcohol once a month, and denies depression or anxiety. He reports sensitivity on his rodriguez, particularly with light pressure, which is more pronounced on one side. [facility] Medical History Cognitive disorder Surgical History No pertinent past surgical history Family History Mother Arthritis Father Hypercholesterolemia Social History Housing: House Alcohol intake: current Alcohol intake frequency: a few times a month Alcohol type: other Patient Tobacco Use Status: Never used Tobacco e-Cigarette/Vaping Use: Never Used Second Hand Smoke Exposure: No service: No Current occupational status: unemployed Cognitive needs: No Hearing needs: No Vision needs: Yes Questionnaire PHQ-9 Over the last 2 weeks, how often have you been bothered by any of the following problems? 1. Little interest or pleasure in doing things: not at all 2. Feeling down, depressed, or hopeless: not at all 3. Trouble falling or staying asleep, or sleeping too much: not at all 4. Feeling tired or having little energy: not at all 5. Poor appetite or overeating: not at all 6. Feeling bad about yourself - or that you are a failure or have let yourself or your family down: not at all 7. Trouble concentrating on things, such as reading the newspaper or watching television: not at all 8. Moving or speaking so slowly that other people could have noticed. Or the opposite - being so fidgety or restless that you have been moving around a lot more than usual: not at all 9. Thoughts that you would be better off or of hurting yourself in some way: not at all Total score: 0 Depression Screening Interpretation: Negative Depression Screening Done: Yes 27605 - PHQ-9 Billing: Yes Source: Developed by Drs. Blake Joshi, Ludmila Biswas, Randall Saldivar and colleagues, with an educational megan from [employer]. Thrive Questionnaire Date Thrive assessed: 05/05/25 I am a: Patient What is your living situation today?: I have a steady place to live Within the past 12 months, did the food you bought not last and you didn't have the money to get more?: Never true Within the past 12 months, did you worry whether your food would run out before you got money to buy more?: Never true Do you have trouble paying for medicines?: No Do you have trouble getting transportation to medical appointments?: No Do you have trouble paying your heating and electricity bill?: No Do you have trouble taking care of your child, family member or friend?: No Do you have trouble with day-to-day activities such as bathing, preparing meals, shopping, managing finances, etc.?: No Are you currently unemployed and looking for a job?: Yes Are you interested in more education?: No Please select the resources that you would like help with: None Currently or been in a relationship where the following occur: No concerns reported THRIVE Score: 0 AUDIT C Alcohol Use Questionnaire (AUDIT-C) 1. How often do you have a drink containing alcohol?: Monthly or less 2. How many drinks containing alcohol do you have on a typical day when you are drinking?: 3 or 4 3. How often do you have six or more drinks on one occasion?: Less than monthly Total Score: 3 Score Reviewed/Action Taken: No CHRISTINA-7 AMB Questionnaire CHRISTINA-7 Date CHRISTINA - 7 assessed: 05/07/25 Feeling nervous, anxious, or on edge: 0 = Not at all Not being able to stop or control worryin = Not at all Worrying too much about different things: 0 = Not at all Trouble relaxin = Not at all Being so restless that it is hard to sit still: 0 = Not at all Becoming easily annoyed or irritable: 0 = Not at all Feeling afraid as if something awful might happen: 0 = Not at all Total CHRISTINA-7 score (0-4 normal; 5-9 mild; 10-14 moderate; 15-21 severe): 0 Source: Developed by Drs. Blake Joshi, Ludmila Biswas, Randall Saldivar and colleagues, with an educational megan from [employer]. CHRISTINA-7 Assessment Billing CHRISTINA-7 Assessment Tool: CHRISTINA-7 Assessment 82029 Review of Systems Const All systems reviewed & are unremarkable except as noted in HPI and below Card Denies chest pain at rest, Denies chest pain with activity, Denies edema, Denies irregular heart rhythm, Denies claudication, Denies dyspnea, Denies dyspnea on exertion, Denies orthopnea, Denies paroxysmal nocturnal dyspnea and Denies slow heart rate Resp Denies cough, Denies dyspnea and Denies dyspnea on exertion GI Denies abdominal pain, Denies change in bowel habits, Denies excessive flatus, Denies nausea and Denies vomiting Denies urinary hesitancy, Denies urinary incontinence and Denies urinary urgency Musc Denies atrophy, Denies deformity and Denies limited range of motion Skin/Breast Denies bleeding lesions, Denies changing lesions and Denies rash Physical exam (Primary Care) Vital Signs: Last Vital Signs Temp 97.3 F 05/07/25 15:33 Pulse 80 05/07/25 15:33 BP 100/60 05/07/25 15:33 Pulse Ox 97 05/07/25 15:33 Oxygen Delivery Method Room Air 05/07/25 15:33 BMI result Body Mass Index 21.9 Tobacco/Smoking Status: Tobacco use Status Tobacco use date assessed 05/07/25 05/07/25 15:38 Patient Tobacco Use Status Never used Tobacco 05/07/25 15:38 e-Cigarette/Vaping Use Never Used 05/07/25 15:38 PHQ-9: PHQ-9 Score PHQ-9: Total score 0 05/07/25 15:38 Depression Screening Interpretation: Negative Thrive Assessment: Date of Thrive Assessment Date Thrive assessed 05/05/25 05/07/25 15:38 Currently or been in a relationship where the following occur: No concerns reported HENMT Head: Yes normal to inspection, Yes normocephalic and Yes atraumatic Ears: external ears normal Eyes General: appearance normal, both eyes and all related structures Eyelids: Yes eyelids normal Conjunctivae: conjunctivae normal Neck Neck: Yes normal visual inspection and Yes supple Resp Effort & Inspection: normal respiratory effort Auscultation: clear to auscultation bilaterally Cardio Jugular venous distension: no JVD Rate: regular rate Rhythm: regular rhythm Heart sounds: S1 normal heart sound present and S2 normal heart sound present GI Inspection: Yes normal to inspection Palpation (GI): Soft to palpation and nontender Auscultation: normal bowel sounds Skin General skin exam: no rashes or lesions noted Neuro General: no focal motor deficits Extrem General: Yes full ROM Psych Appearance: grossly normal Coding Level of Care Code Est Pt Prev Care 18-39y(77214) Diagnoses Physical exam Z00.00 Additional Codes PHQ-9 - 00698 - PHQ-9 Billing: Yes ([id number]) CHRISTINA-7 Assessment Billing - CHRISTINA-7 Assessment Tool: CHRISTINA-7 Assessment 85586 ([id number]) Time Spent (min) 30 Assessment & Plan Assessment & Plan (1) Physical exam: Code(s): Z00.00 - Encounter for general adult medical examination without abnormal findings Category: Medical Plan Plan 1. Encounter for general adult medical examination without abnormal findings Z00.00 The patient is a 24-year-old male presenting for a routine physical exam. A physical exam was conducted. Previous lab results were reviewed and noted to be normal, so no new blood work was ordered. An influenza vaccination was offered but declined by the patient. The patient was encouraged to continue attending the gym. 2. Migraine The patient has a history of migraines and is followed by a neurologist. The migraines are reported as infrequent and minor, managed with ofep-lnp-lasghkz medication. His prior brain MRI was normal. No new interventions are planned at this time. 3. Rodriguez Sensitivity The patient complains of new-onset sensitivity to pressure on his rodriguez, which is more pronounced on one side. The physical exam revealed no bruising. The sensitivity is likely due to sensitive nerve endings. The patient was advised to be careful, especially with gym equipment, to avoid injury. Medications: Discontinued omeprazole Discontinued Reason: Patient Completed Course 40 mg PO DAILY 90 days 90 caps 1RF
[2025-05-07 15:33] VITALS: BP 100/60; PULSE 80; TEMP 36.3; O2SAT 97; BMI 21.9
--- OUTSIDE RECORDS SUMMARY | 2025-05-07 18:10 | XMS_ITS | Encounter Summary ---
Author Organization [facility] Address [address] [place] [address] Phone Care Team Providers Care Switchboard Operator Supervisor Name Role Phone Jori Mccormick MD Primary Care Provider Unavailabl e Encounter Details Date Type Department Care Team (Late st Contact Info) Description 02/17/2017 Conversion Encounter [facility] - [address] [address] Social History Tobacco Use Types Packs/Day Years [...] on filedocumented in this encounter Care Teams Switchboard Operator Supervisor Relationship Specialty Start Date End Date Jori Mccormick MD PCP - General 02/11/17 documented as of this encounter
--- OUTSIDE RECORDS SUMMARY | 2025-05-07 18:10 | XMS_ITS | Encounter Summary ---
Author Organization [facility] Address [address] [place] [address] Phone Care Team Providers Care Corrective Therapist Name Role Phone Jori Mccormick MD Primary Care Provider Unavailabl e Encounter Details Date Type Department Care Team (Late st Contact Info) Description 08/23/2012 Documentation [facility] [place] Family Medicine [address] [place], [place] [id number] Family Medicine, Physician [address] [place] [address] Social History Tobacco Use Types Packs/Day Years [...] on filedocumented in this encounter Care Teams Corrective Therapist Relationship Specialty Start Date End Date Jori Mccormick MD PCP - General 02/11/17 documented as of this encounter
--- OUTSIDE RECORDS SUMMARY | 2025-05-07 18:10 | XMS_ITS | Clinical Summary ---
Author Organization [facility] Address [address] [place] [address] Care Team Providers Care Casing In Line Feeder Name Role Phone Darwin Rodriguez MD Primary Care Provider [phone] Allergies No known active allergies Medications omeprazole [...] Abdominal pain 07/01/2015 Overview (07/03/2024): Saw GI 7011-[address] Vargas Dyspepsia vs functional abd pain, bentyl and omeprazol Rx. Celiac screen 07/2013 Negative, lactose intolerant. Acne 07/01/2015 Overview (07/03/2024): 05/17 on doxycycilne rx by veneer measurer [place], Mom feels it did not make any difference in acne, she should like to see veneer measurer in this area. Was on cleocin in the past which helped, cleocin for now and referral to dermatology. Lactose intolerance 07/01/2015 Immunizations Immunization Administration Dates Next Due DTaP (Infanrix) 6wks to less than 7yo ,01/28/2000,1999,09/16 PXfT-FLY-CQK (Pentacel) 2mo to less than 5yo 01/28/2000,1999,1999,09/16 [...] Health Maintenance Due Date Last Done Comments Social Influencers of Health Screening 06/06/2022 Depression Screening 07/04/2024 COVID-19 Vaccine ( - season) 2025 Influenza Vaccine (#1) 2025 , 07/01/2015, 05/13/2014, Additional history exists Cholesterol Screening (Lipid Panel) 09/01/2026 09/01/2021 DTaP,Tdap,and Td Vaccines (7 - Td or Tdap) 02/26/2031 02/26/2021, 03/12/2011, 12/12/2000, Additional history exists RSV Immunization Adult Patients (1 - 1-dose 75+ series) 2074 HIB Vaccines Aged Out 01/28/2000, 10/1999, 1999, [...] * HIV Screening (09/01/2021) HIV Screening abstracted [facility] Provider HEALTH MAINTENANCE Final Result * Hepatitis C Screening (09/01/2021) Hepatitis C Screening abstracted [facility] Provider HEALTH MAINTENANCE Final Result * Lipid panel (09/01/2021) LDL/HDL Ratio 3 0 - 4 Triglycerides 78 0 - 150 mg/dL Cholesterol 134 0 - 200 mg/dL HDL 47 >=40 mg/dL LDL Cholesterol 72 0 - 100 mg/dL Blood Venous blood specimen / Unknown [facility] Provider LAB BLOOD ORDERABLES Shanna l Result from Last 3 Months or Most Recently Relevant to Health Maintenance Care Teams Casing In Line Feeder Relationship Specialty Start Date End Date Darwin Rodriguez MD PCP - General Internal Medicine 08/25/20
--- OUTSIDE RECORDS SUMMARY | 2025-05-07 18:10 | XMS_ITS | Clinical Summary ---
Author Organization [facility] Address [address] [place] [address] Phone Care Team Providers Care Ground Operations Crew Member Name Role Phone Jori Mccormick MD Primary [...] 12/12/2000, Additional history exists Influenza Vaccines (#1) 2025 05/11/20 13, 03/16/2012, 07/17/2009 COVID-19 Vaccine ( - 2024- season) 2025 Hepatitis B Vaccines Completed 03/02/2000, 1999, 1999 [...] age to complete this topic Care Teams Ground Operations Crew Member Relationship Specialty Start Date End Date Jori Mccormick MD PCP - General 02/11/17
--- OUTSIDE RECORDS SUMMARY | 2025-05-07 18:10 | XMS_ITS | Data Portability ---
Author Organization [place] - [facility] Address [address] [place] [phone] Assessment No assessment recorded. Plan of Treatment Reminders Order Date Submit Date Provider Last Modified By Organization Details Last Modified Time Details Appointments None record ed. Lab None record ed. Referral None record ed. Procedures None record ed. Surgeries None record ed. Imaging None record ed. Medication Orders None record ed. Patient TargetsNo targets recorded. Patient InstructionsNo instructions recorded. Reason for Referral None Reported. Results Created Date Observation Date Name Description Value Unit Range Abnormal Flag Note LastModifiedBy Organization Detail LastModifiedTime 10/16/19 25 audio gram No observ ation record ed. BARCODE Not Available 2024 09:21:05 Result Notes None recorded. Problems Name Problem SNOMED Code Status Onset Date Resolution Date Notes Provider Name and Address Organization Details Recorded Time Bilateral disorder of Eustachian tubes 7116231044085 107 Active 2024 YAYO SCHMID AUD [address] [address], [place], [phone], [facility] - [facility] 5 14:52:03 Conductive hearing loss, bilateral 822471253 Active 2024 YAYO SCHMID AUD [address] [address], [place], [phone], [facility] 5 15:01:53 Acute serous otitis media of bilateral ears 7742317569057 107 Active 2024 HANSA Pa MD [address] [facility] [place],[address] [address], [place], [phone], [facility] - [facility] 5 15:23:45 Problem Notes None recorded. Procedures Surgical History Date Name Laterality Status Provider Name and Address Organization Details Recorded Time 10/12/2024 Comp Audio with Tymps - 02636 & 06784 completed BUNNY GRIDER [address] [place] [address], [phone], [facility] - [facility] 10/12/2024 14:52:07 Imaging Results None recorded. Procedure Notes None recorded. Medical Equipment None Reported. Allergies No known drug allergies Medications Name Sig Start Date Stop Date Status Note LastModified by Organization Details LastModified Time doxycycline hyclate 100 mg capsule TAKE 1 CAPSULE BY MOUTH TWICE A DAY FOR 7 DAYS 10/12 completed Not Available Not Available Not Available omeprazole 40 mg capsule,del ayed release TAKE 1 CAPSULE BY MOUTH EVERY DAY active Not Available Not Available No t Available selenium sulfide 2.25 % shampoo APPLY TOPICALLY AT BEDTIME MASSAGE INTO AFFECTED AREA LEAVE ON 10 MINUTES RINSE OFF THOROUGHL Y active Not Available Not Available No t Available Vitals Date Recorded Body height Body mass index (BMI) Body weight Provider Name and Address Organization Details Last Updated DateTime 10/12/2024 172.72 cm 20.7 kg/m2 63458.56 g Jimi Pichardo [place] - [facility] 10/12/2024 15:13:10 Social History None recorded. Functional Status None recorded. Mental Status None recorded. Family History Nothing Reported. Medical History No medical history recorded. Past Encounters Encounter ID Performer Location Encounter Start Date Encounter Closed Date Diagnosis/Indication Diagnosis SNOMED-CT Code Diagnosis ICD10 Code Diagnosis IMO Codes Diagnosis Note [id number] HANSA BROWN MD [facility] [address] [phone] 10/12/2024 14:37:55 10/12/2024 15:37:01 Bilateral disorder of Eustachian tubes [id number] 233940 H69.93 Right Ear:Border line normal hearing/mi ld CHL with excellent speech discrimina tion.Type B tympanogra m.Left Ear:Border line normal hearing/mi ld CHL with excellent speech discrimina tion.Type C tympanogra m, rounded. see below Conductive hearing loss, bilateral 242754628 H90.0 due to effusions and retraction Acute sero us otitis media of bilateral ears 1665191052 552498 H65.03 He has bilateral eustachian tube dysfunctio n with retracted eardrums as well as serous effusions on both sides. I discussed options including Afrin, Sudafed, a course of prednisone , and myringotom y. I did not recommend myringotom y as he has only had effusions for 2 weeks. I recommend auto insufflati on and 3 days of Afrin. We deferred prednisone for now. We will plan a follow-up in 4 weeks with a hearing test to ensure the effusions resolve. I discussed the pathophysi ology of eustachian tube dysfunctio n. I personally reviewed his audiogram. It showed conductive hearing loss on both sides with flat tympanogra ms. Health Concerns Section Related Observation LastModified by Organization Detai ls LastModified Time None Recorded Concern Status LastModified by Organization Details LastModified Time None Recorded Advance Directives Directive None Recorded Payers Insurance Date Sequence Insurance Name Policy Number Policy Jean Baptiste Covered Member ID Jean Baptiste Member ID Guarantor Name 12/02/2024 1 [facility] (MEDICAID HMO) OVIDIOKARLAViolet Marquez Guzman [id number] Marquez Guzman 10/11/2024 1 [place] [facility] Marquez Guzman [id number] Marquez Guzman 11/30/2024 2 [facility] PLAN - [facility] (MEDICAID REPLACEMENT - HMO) [place]ERRA Marquez Guzman [id number] Marquez Guzman Notes Date Note Type Note Provider Name and Address Organization Details Recorded Time 10/12/2024 text/html ROS as noted in the HPI For 2 weeks his right ear has felt blocked. Yesterday the left felt blocked. He has had a cough during this time. Now his nose is congested. No tinnitus. Audio showed CHL AU with flat tymps. 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 Has trouble equalizing pressure when he flies. HANSA BROWN MD [address] [place] [address], [place], [phone], [facility] - [facility] 10/12/2024 15:33:18
--- OUTSIDE RECORDS SUMMARY | 2025-05-07 18:10 | XMS_ITS | Encounter Summary ---
Author Organization [facility] Address [address] [place] [address] Phone Care Team Providers Care Smoking Pipe Liner Name Role Phone Jori Mccormick MD Primary Care Provider Unavailabl e Encounter Details Date Type Department Care Team (Late st Contact Info) Description 12/25/2013 Documentation [facility] [place] [place] Family Medicine [address] [place] [address] Family Medicine, Physician [address] [place] [address] Social History Tobacco Use Types Packs/Day Years [...] on filedocumented in this encounter Care Teams Smoking Pipe Liner Relationship Specialty Start Date End Date Jori Mccormick MD PCP - General 02/11/17 documented as of this encounter
--- OUTSIDE RECORDS SUMMARY | 2025-05-07 18:10 | XMS_ITS ---
[facility] Name [facility] Care Team Organization Name Specialty Phone Email Start Date End Da te [facility] GALLO MONROE Primary Care 05/11/2022 4
--- OUTSIDE RECORDS SUMMARY | 2025-05-07 18:10 | XMS_ITS | Encounter Summary ---
Author Organization [facility] Address [address] [place] [address] Phone Care Team Providers Care Director Ehs Name Role Phone Jori Mccormick MD Primary Care Provider Unavailabl e Encounter Details Date Type Department Care Team (Late st Contact Info) Description 06/19/2013 Documentation [facility] [place] [address] [place] [address] Family Medicine, Physician [address] [place] [address] Social History Tobacco Use Types Packs/Day Years [...] on filedocumented in this encounter Care Teams Director Ehs Relationship Specialty Start Date End Date Jori Mccormick MD PCP - General 02/11/17 documented as of this encounter
--- OUTSIDE RECORDS SUMMARY | 2025-05-07 18:10 | XMS_ITS | Encounter Summary ---
Author Organization [facility] Address [address] [place] [address] Phone Care Team Providers Care Superintendent Measurement Name Role Phone Jori Mccormick MD Primary Care Provider Unavailabl e Encounter Details Date Type Department Care Team (Late st Contact Info) Description 05/24/2013 Documentation [facility] [place] [address] [place] [address] Family Medicine, Physician [address] [place] [address] Social History Tobacco Use Types Packs/Day Years [...] on filedocumented in this encounter Care Teams Superintendent Measurement Relationship Specialty Start Date End Date Jori Mccormick MD PCP - General 02/11/17 documented as of this encounter
== END 2025-05-07 15:57 | disposition home or self-care (01) ==
LOC: HO.HMCH 15:21
PROVIDERS: PCP Internal Medicine; Visit Provider Internal Medicine
DX: Z00.00 Encounter for general adult medical examination without abnormal findings (principal)

== ENCOUNTER → 2025-05-07 15:21 | Outpatient (BNVA) | payer OTHER, SELFPAY | PROVIDERS: PCP Internal Medicine; Visit Provider Internal Medicine | DX: Z00.00 Encounter for general adult medical examination without abnormal findings (principal); G43.909 Migraine, unspecified, not intractable, without status migrainosus | CPT/HCPCS: 96127; 99395 ==